=== PATIENT | male | born 1970 | race Caucasian/White ===

== ENCOUNTER 2016-08-31 17:49 | Emergency (ER) | payer OTHER, MEDICAID ==
[~2016-08-31] VITALS: Ht 177.8 cm; Wt 123.0 kg
[~2016-08-31 17:49] MED LIST: ACET325T11 PO; AMLO5TAB22 PO; ATOR80TA PO; BETH25 PO; HYDR12.56 PO; MECL25 PO; METF500 PO; METO50TA PO; SPIR50TA21 PO; TAMS0.4C4 PO; WARF5TAB PO
[2016-08-31 17:58] VITALS: BP 165/98; PULSE 84; RESP 19; TEMP 98.1
[2016-08-31 18:03] VITALS: BP 165/98; PULSE 96; RESP 16; TEMP 98.1
--- NOTE | 2016-08-31 18:38 | PD ---
HPI Chief Complaint: Abnormal Results Time Seen by Provider: 18:19 Travel History International Travel<30 days: No Contact w/Intl Traveler<30days: No Traveled to known affect area: No History of Present Illness HPI 46yo M with PMH of CVA on coumadin was sent here from PMD because his INR was high. Pt had his coumadin switch from 5mg to 10mg 5 days ago because INR was low. Pt had blood drawn yesterday and INR was 7. Pt denies any complaints. Denies any headache, chest pain, sob, n/v, abdominal pain, focal weakness or numbness, blood in stool, epistaxis or any bleeding. PFSH Past Medical History Hx Anticoagulant Therapy: Yes (COUMADIN ) Cardiovascular Problems: Yes (HTN) High Cholesterol: Yes Chemotherapy: No Cerebrovascular Accident: Yes (Stroke 2 years ago) Diabetes: Yes Patient Takes Glucophage: Yes Diminished Hearing: No Respiratory: No Immunizations Current: No Tetanus Vaccination: < 5 Years Influenza Vaccination: No Past Surgical History Surgical History: No Previous Surgery Social History Alcohol Use: No Tobacco Use: No Substance Use: No Allergies-Medications (Allergen,Severity, Reaction): Coded Allergies: Garlic (Verified Allergy, Unknown, 08/31/16) Azithromycin (Verified Adverse Reaction, Severe, 08/31/16) Reported Meds & Prescriptions Reported Meds & Active Scripts Active Atorvastatin 80 mg (Atorvastatin Calcium) 80 Mg Tab 80 Mg PO HS Urecholine (Bethanechol Chloride) 25 Mg Tab 25 Mg PO TID Warfarin Sodium 5 mg (Warfarin Sodium) 5 Mg Tab 5 Mg PO DAILY Spironolactone 50 Mg Tab 50 Mg PO DAILY Hydrochlorothiazide 12.5 Mg Tab 12.5 Mg PO DAILY Tamsulosin 0.4 mg (Tamsulosin HCl) 0.4 Mg Cap 0.8 Mg PO DAILY Metoprolol Tartrate 50 mg (Metoprolol Tartrate) 50 Mg Tab 50 Mg PO BID Antivert (Meclizine HCl) 25 Mg Tab 25 Mg PO TID Glucophage 500 mg (Metformin HCl) 500 Mg Tab 500 Mg PO DAILY Amlodipine Besylate 5 mg (Amlodipine Besylate) 5 Mg Tab 1 Tab PO DAILY Reported Tylenol 325 Mg Tab (Acetaminophen) 325 Mg Tab 325 Mg PO DAILY PRN Review of Systems Except as stated in HPI: all other systems reviewed are Neg Physical Exam Narrative GENERAL: 46yo M not in distress. SKIN: Focused skin assessment warm/dry. HEAD: Atraumatic. Normocephalic. EYES: Pupils equal and round. No scleral icterus. No injection or drainage. ENT: No nasal bleeding or discharge. Mucous membranes pink and moist. NECK: Trachea midline. No JVD. CARDIOVASCULAR: Regular rate and rhythm. No murmur appreciated. RESPIRATORY: No accessory muscle use. Clear to auscultation. Breath sounds equal bilaterally. GASTROINTESTINAL: Abdomen soft, non-tender, nondistended. No rebound tenderness or guarding. RECTAL: Brown stool. Hemaprompt negative. MUSCULOSKELETAL: No obvious deformities. No clubbing. No cyanosis. No edema. NEUROLOGICAL: Awake and alert. No obvious cranial nerve deficits. Mild decreased strength in left arm and leg which is residual from CVA. Sensation intact. Normal speech. PSYCHIATRIC: Appropriate mood and affect; insight and judgment normal. Data Data Last Documented VS Vital Signs Date Time Temp Pulse Resp B/P Pulse Ox O2 Delivery O2 Flow Rate FiO2 08/31/16 18:03 95 Room Air 08/31/16 18:03 98.1 96 16 165/98 95 Orders Complete Blood Count With Diff (08/31/16 18:32) Prothrombin Time / Inr (Pt) (08/31/16 18:32) Act Partial Throm Time (Ptt) (08/31/16 18:32) Labs Laboratory Tests Test 08/31/16 08/31/16 18:40 19:20 White Blood Count 11.4 TH/MM3 Red Blood Count 5.50 MIL/MM3 Hemoglobin 15.2 GM/DL Hematocrit 44.7 % Mean Corpuscular Volume 81.2 FL Mean Corpuscular Hemoglobin 27.6 PG Mean Corpuscular Hemoglobin 33.9 % Concent Red Cell Distribution Width 13.3 % Platelet Count 278 TH/MM3 Mean Platelet Volume 9.1 FL Neutrophils (%) (Auto) 71.1 % Lymphocytes (%) (Auto) 19.7 % Monocytes (%) (Auto) 6.4 % Eosinophils (%) (Auto) 1.9 % Basophils (%) (Auto) 0.9 % Neutrophils # (Auto) 8.1 TH/MM3 Lymphocytes # (Auto) 2.3 TH/MM3 Monocytes # (Auto) 0.7 TH/MM3 Eosinophils # (Auto) 0.2 TH/MM3 Basophils # (Auto) 0.1 TH/MM3 CBC Comment DIFF FINAL Differential Comment Prothrombin Time 72.3 SEC Prothromb Time International 6.0 RATIO Ratio Activated Partial 56.5 SEC Thromboplast Time MDM Medical Decision Making Medical Screen Exam Complete: Yes Emergency Medical Condition: Yes Differential Diagnosis Supratherapeutic INR Narrative Course 46yo with no complaints here because of supratherapeutic INR yesterday. Will repeat INR. H/H 15.2/44.7. Sign out to next team to follow up INR and disposition. HemaPrompt Point of Care Internal Pos. & Neg. Controls: Passed Fecal Specimen Occult Blood: Negative Leidy Chan DO Aug 31, 2016 18:37
[2016-08-31 19:01] LABS: AUTOMATED NEUTROPHIL # 8.1 TH/MM3 (1.8-7.7); BASOPHIL # 0.1 TH/MM3 (0-0.2); BASOPHIL % 0.9 % (0.0-2.0); EOSINOPHIL # 0.2 TH/MM3 (0-0.4); EOSINOPHIL % 1.9 % (0.0-4.0); HEMATOCRIT 44.7 % (39.0-51.0); HEMO FLAGS DIFF FINAL; LYMPH % 19.7 % (9.0-44.0); LYMPHOCYTE # 2.3 TH/MM3 (1.0-4.8); MEAN CELL VOLUME 81.2 FL (80.0-100.0); MEAN CORPUSCULAR HEMOGLOBIN 27.6 PG (27.0-34.0); MEAN CORPUSCULAR HGB CONC 33.9 % (32.0-36.0); MONO % 6.4 % (0.0-8.0); NEUT % 71.1 % (16.0-70.0); PLATELET COUNT 278 TH/MM3 (150-450); RED CELL DISTRIBUTION WIDTH 13.3 % (11.6-17.2); WHITE BLOOD COUNT 11.4 TH/MM3 (4.0-11.0)
--- NOTE | 2016-08-31 19:14 | PD ---
Data Data Last Documented VS Vital Signs Date Time Temp Pulse Resp B/P Pulse Ox O2 Delivery O2 Flow Rate FiO2 08/31/16 18:03 95 Room Air 08/31/16 18:03 98.1 96 16 165/98 95 Orders Complete Blood Count With Diff (08/31/16 18:32) Prothrombin Time / Inr (Pt) (08/31/16 18:32) Act Partial Throm Time (Ptt) (08/31/16 18:32) Labs Laboratory Tests Test 08/31/16 08/31/16 18:40 19:20 White Blood Count 11.4 TH/MM3 Red Blood Count 5.50 MIL/MM3 Hemoglobin 15.2 GM/DL Hematocrit 44.7 % Mean Corpuscular Volume 81.2 FL Mean Corpuscular Hemoglobin 27.6 PG Mean Corpuscular Hemoglobin 33.9 % Concent Red Cell Distribution Width 13.3 % Platelet Count 278 TH/MM3 Mean Platelet Volume 9.1 FL Neutrophils (%) (Auto) 71.1 % Lymphocytes (%) (Auto) 19.7 % Monocytes (%) (Auto) 6.4 % Eosinophils (%) (Auto) 1.9 % Basophils (%) (Auto) 0.9 % Neutrophils # (Auto) 8.1 TH/MM3 Lymphocytes # (Auto) 2.3 TH/MM3 Monocytes # (Auto) 0.7 TH/MM3 Eosinophils # (Auto) 0.2 TH/MM3 Basophils # (Auto) 0.1 TH/MM3 CBC Comment DIFF FINAL Differential Comment Prothrombin Time 72.3 SEC Prothromb Time International 6.0 RATIO Ratio Activated Partial 56.5 SEC Thromboplast Time MDM Medical Record Reviewed: Yes Supervised Visit with JUAN ANTONIO: No Narrative Course During the course of the patients emergency department visit, the patients history, examination, and differential diagnosis were reviewed with the patient. The patient had IV access obtained and blood work sent for analysis. The patient was placed on a irrigation manager with oximetry and blood pressure monitoring. The patient's case was checked out to me by Dr. Chan who requested that I review the patient's INR results. The patient is a 46-year-old male who presents to [facility] emergency department after being referred by the patient's primary care doctor related to an elevated INR of 7. The patient has a history of having a low INR and was increased from 5 mg 10 mg on his Coumadin approximately 5 days ago. The patient denies any sites of bleeding. The patient was reportedly Hemoccult-negative. The patients laboratory studies were reviewed and remarkable for a white count of 11.4, hemoglobin 15.2, platelets 278 with 71.1 neutrophils, INR is 6.0. This is decreased down from the 7 as an outpatient. At this time, as the patient has no signs or symptoms of bleeding and the INR is going down, the patient is instructed to hold his Coumadin and follow-up for repeat INR as an outpatient in 2 days, along with guidance from his physician regarding decreasing his dose of Coumadin in order to prevent a recurrence of this elevation. The patient is resting comfortably and feels better, is alert and in no distress. The patients results and examination findings were discussed with the patient. The repeat examination is unremarkable and benign. The history, exam, diagnostic testing, and current condition do not suggest any significant pathology to warrant further testing, continued ED treatment, admission, or surgical evaluation at this point. The vital signs have been stable. The patient does not have uncontrollable pain, intractable vomiting, or other significant symptoms. The patient's condition is stable and appropriate for discharge. The patient will pursue further outpatient evaluation with a primary care physician or other designated or consulting physician as indicated in the discharge instructions. The patient expressed understanding and was agreeable with this plan. Diagnosis Primary Impression: Elevated INR Referrals: Primary Care Physician 2 days Patient Instructions: Elevated INR (ED), General Instructions Additional Instruction: At this time, as the patient has no signs or symptoms of bleeding and the INR is going down, the patient is instructed to hold his Coumadin and follow-up for repeat INR as an outpatient in 2 days, along with guidance from his physician regarding decreasing his dose of Coumadin in order to prevent a recurrence of this elevation. The patient will be given an outpatient lab slip to repeat his INR in the morning on . Med/Other Pt SpecificInfo: Existing Med Changed (hold Coumadin level and until told by your physician to re-start at a lower dose) Disposition: 01 DISCHARGE HOME Condition: Stable Zulma Tuttle MD Aug 31, 2016 19:14
[2016-08-31 19:48] LABS: APTT (PATIENT) 56.5 SEC (24.3-30.1); PROTHROMBIN TIME - PATIENT 72.3 SEC (9.8-11.6)
== END 2016-08-31 21:39 | disposition home or self-care (01) ==
LOC: NEPE 17:49
DX: R79.1 Abnormal coagulation profile (principal); Z79.01 Long term (current) use of anticoagulants
CPT/HCPCS: 85025; 85610; 85730; 99283

== ENCOUNTER 2016-12-04 13:58 | Emergency (ER) | payer MEDICAID, OTHER ==
[~2016-12-04] VITALS: Ht 177.8 cm; Wt 108.0 kg
[2016-12-04 14:00] VITALS: BP 159/103; PULSE 102; RESP 20; TEMP 98.4; O2SAT 95
--- NOTE | 2016-12-04 14:22 | PD ---
Physical Exam Date Seen by Provider: Dec 04, 2016 Time Seen by Provider: 14:19 Narrative 46-year-old male presents to emergency department with right flank pain since yesterday. Patient states it kept him from sleeping last evening but now pain is 3 out of 10. Patient denies any specific urinary symptoms. He denies fever, chills, nausea, or vomiting. No diarrhea. Patient has distant history of kidney stones approximately 15-20 years ago. He is allergic to azithromycin and garlic. Urinalysis ordered. Vital signs reviewed and patient is awaiting bed placement. Data Data Last Documented VS Vital Signs Date Time Temp Pulse Resp B/P (MAP) Pulse Ox O2 Delivery O2 Flow Rate FiO2 12/04/16 14:00 98.4 102 20 159/103 (121) 95 Room Air [facility] Medical Record Reviewed: Yes Supervised Visit with JUAN ANTONIO: Yes Condition: Stable Colton Francois Dec 04, 2016 14:22
[2016-12-04] MEDS ORDERED: WARF-21 PO (14:58)
[2016-12-04] MEDS ORDERED: WARF-23 PO (14:58)
[2016-12-04] MEDS ORDERED: AMLO5TAB2 PO (14:58)
[2016-12-04] MEDS ORDERED: TYLE325T PO (14:58)
[2016-12-04] MEDS ORDERED: METO50TA PO (14:58)
[2016-12-04] MEDS ORDERED: TAMS0.4C4 PO (14:58)
[2016-12-04] MEDS ORDERED: HYDR12.56 PO (14:58)
--- NOTE | 2016-12-04 15:00 | PD ---
Physical Exam Date Seen by Provider: Dec 04, 2016 Narrative Patient presents complaining with right flank pain On exam, the patient is sitting comfortably on the edge of the stretcher in no distress. He does not have CVA tenderness. Data Data Last Documented VS Vital Signs Date Time Temp Pulse Resp B/P (MAP) Pulse Ox O2 Delivery O2 Flow Rate FiO2 12/04/16 14:00 98.4 102 20 159/103 (121) 95 Room Air Orders Orders Urinalysis - C+S If Indicated (12/04/16 14:22) MDM Supervised Visit with JUAN ANTONIO: Yes Narrative Course I, Dr. Kemp, have reviewed the advance practice practitioner's documentation and am in agreement, met with the patient face to face, made the diagnosis, and the medical decision making was done by me. *My assessment and Findings: Well-appearing man with right flank pain. See Corrie Marti's note for final diagnosis and disposition. Condition: Stable Nelia Kemp MD Dec 04, 2016 15:00
--- NOTE | 2016-12-04 15:11 | PD ---
HPI Chief Complaint: Flank/Kidney Pain Time Seen by Provider: 14:56 Travel History International Travel<30 days: No Contact w/Intl Traveler<30days: No Traveled to known affect area: No History of Present Illness HPI Patient is a 46-year-old male presenting to the emergency room for evaluation of right back pain. Patient states the pain started last night, it caused him to be restless when he was sleeping. He denies any hematuria, dysuria, frequency. Patient just returned from [place], he states he spent 8 hours in the car driving 2 days ago. He further denies any fever, chills, nausea, vomiting, chest pain or shortness of breath. He has remote history of kidney stone, he is no history of urinary tract infections. His past medical history is significant for CVA and hypertension, patient is currently on Coumadin. His primary doctor is Sharon Bang. PFSH Past Medical History Hx Anticoagulant Therapy: Yes (COUMADIN ) Cardiovascular Problems: Yes (HTN) High Cholesterol: Yes Chemotherapy: No Cerebrovascular Accident: Yes (Stroke 2 years ago) Diabetes: Yes Patient Takes Glucophage: No Diminished Hearing: No Hypertension: Yes Respiratory: No Immunizations Current: No Social History Alcohol Use: No Tobacco Use: No Substance Use: No Allergies-Medications (Allergen,Severity, Reaction): Coded Allergies: garlic (Unverified Allergy, Unknown, 12/04/16) azithromycin (Unverified Adverse Reaction, Severe, 12/04/16) Reported Meds & Prescriptions Reported Meds & Active Scripts Active Reported Warfarin 5 Mg Tab 5 Mg PO DAILY EVERYDAY, EXCEPT TUESDAY, TUESDAY Warfarin 7.5 Mg Tab 7.5 Mg PO DIRECTED TUESDAY, TUESDAY Tamsulosin (Tamsulosin HCl) 0.4 Mg Cap 0.4 Mg PO HS Hydrochlorothiazide 12.5 Mg Tab 12.5 Mg PO DAILY Metoprolol Tartrate 50 Mg Tab 50 Mg PO DAILY Amlodipine (Amlodipine Besylate) 5 Mg Tab 5 Mg PO DAILY Tylenol (Acetaminophen) 325 Mg Tab 325 Mg PO Q4H PRN Review of Systems Except as stated in HPI: all other systems reviewed are Neg Musculoskeletal: Positive: Myalgias, Pain Physical Exam Narrative GENERAL: Well-developed, well-nourished, alert male. Resting comfortably in no acute distress. SKIN: Warm and dry. HEAD: Atraumatic. Normocephalic. EYES: Pupils equal and round. No scleral icterus. No injection or drainage. ENT: No nasal bleeding or discharge. Mucous membranes pink and moist. NECK: Trachea midline. No JVD. CARDIOVASCULAR: Regular rate and rhythm. RESPIRATORY: No accessory muscle use. Clear to auscultation. Breath sounds equal bilaterally. GASTROINTESTINAL: Abdomen soft, non-tender, nondistended. Hepatic and splenic margins not palpable. MUSCULOSKELETAL: Extremities without clubbing, cyanosis, or edema. No obvious deformities. No CVAT bilaterally. Mild tenderness to palpation in right lower spinal musculature. NEUROLOGICAL: Awake and alert. No obvious cranial nerve deficits. Motor grossly within normal limits. Five out of 5 muscle strength in the arms and legs. Normal speech. PSYCHIATRIC: Appropriate mood and affect; insight and judgment normal. Data Data Last Documented VS Vital Signs Date Time Temp Pulse Resp B/P (MAP) Pulse Ox O2 Delivery O2 Flow Rate FiO2 12/04/16 14:00 98.4 102 20 159/103 (121) 95 Room Air Orders Orders Urinalysis - C+S If Indicated (12/04/16 14:22) Ibuprofen (Motrin) (12/04/16 15:15) Labs Laboratory Tests Test 12/04/16 14:30 Urine Color YELLOW Urine Turbidity CLEAR Urine pH 5.5 Urine Specific [place] 1.019 Urine Protein TRACE mg/dL Urine Glucose (UA) NEG mg/dL Urine Ketones NEG mg/dL Urine Occult Blood NEG Urine Nitrite NEG Urine Bilirubin NEG Urine Urobilinogen LESS THAN 2.0 MG/DL Urine Leukocyte Esterase NEG Urine RBC 1 /hpf Urine WBC 2 /hpf Urine Squamous Epithelial Cells <1 /hpf Urine Mucus FEW /lpf Urine Sperm FEW Microscopic Urinalysis Comment CULT NOT INDICATED MDM Medical Decision Making Medical Screen Exam Complete: Yes Emergency Medical Condition: Yes Interpretation(s) Laboratory Tests Test 12/04/16 14:30 Urine Color YELLOW Urine Turbidity CLEAR Urine pH 5.5 Urine Specific [place] 1.019 Urine Protein TRACE mg/dL Urine Glucose (UA) NEG mg/dL Urine Ketones NEG mg/dL Urine Occult Blood NEG Urine Nitrite NEG Urine Bilirubin NEG Urine Urobilinogen LESS THAN 2.0 MG/DL Urine Leukocyte Esterase NEG Urine RBC 1 /hpf Urine WBC 2 /hpf Urine Squamous Epithelial Cells <1 /hpf Urine Mucus FEW /lpf Urine Sperm FEW Microscopic Urinalysis Comment CULT NOT INDICATED Vital Signs Date Time Temp Pulse Resp B/P (MAP) Pulse Ox O2 Delivery O2 Flow Rate FiO2 12/04/16 14:00 98.4 102 20 159/103 (121) 95 Room Air Differential Diagnosis UTI versus kidney stone versus pyelonephritis versus strain versus muscle spasm versus discogenic pain Narrative Course Patient is a 46-year-old male that presented to emergency evaluation of right low back pain that he initially attributed to his kidneys. He reports a remote history of kidney stones, exam findings that appear consistent with a kidney stone. Patient is resting comfortably. We'll assess a urinalysis. No signs are stable, he is afebrile. Urinalysis reviewed, other than mucus and sperm and is unremarkable. Patient was given ibuprofen in the emergency department. Pain in his back may be related to the long car ride he just completed. Patient is encouraged [id number] Tylenol needed and as directed for pain. He will be given a short course of muscle relaxers. He is encouraged to follow -up with her primary doctor, apply warm heat to affected area, continue range of motion exercises. He was encouraged to return to emergency department immediately for any new or worsening symptoms. Diagnosis Primary Impression: Back pain Qualified Codes: M54.9 - Dorsalgia, unspecified Referrals: Primary Care Physician Patient Instructions: Acute Low Back Pain (ED), General Instructions Additional Instructions: Follow-up with your primary doctor Take medications as directed Apply warm moist heat to the affected area, continue range of motion exercises, avoid exacerbating activities, avoid bed rest Return to the emergency department for any new or worsening symptoms Med/Other Pt SpecificInfo: Prescription(s) given Scripts Cyclobenzaprine (Flexeril) 10 Mg Tab 10 MG PO TID Y for MUSCLE SPASM for 10 Days, #30 TAB 0 Refills Prov: Corrie Lugo 12/04/16 Disposition: 01 DISCHARGE HOME Condition: Stable Corrie Lugo Dec 04, 2016 15:11
[2016-12-04] MEDS ORDERED: IBUPROFEN 800 MG TAB PO ONE (15:15)
[2016-12-04 15:33] LABS: BLOOD, URINE NEG (NEG); COMMENT (UR) CULT NOT INDICATED; CULTURE IF INDICATED CULT NOT INDICATED; GLUCOSE,URINE NEG (NEG); KETONE, URINE NEG (NEG); MUCUS URINE FEW /lpf (OCC); NITRITE,URINE NEG (NEG); PH, URINE 5.5 (5.0-8.5); SQUAMOUS EPITHELIAL CELL URINE <1 /hpf (0-5); URINE COLOR YELLOW (YELLW/STRAW)
[2016-12-04] MEDS ORDERED: CYCL1TAB29 PO (15:53)
== END 2016-12-04 16:05 | disposition home or self-care (01) ==
LOC: NEPD 13:58
DX: M54.5 Low back pain (principal); E11.9 Type 2 diabetes mellitus without complications; I10 Essential (primary) hypertension; E78.00 Pure hypercholesterolemia, unspecified; Z79.01 Long term (current) use of anticoagulants; Z86.79 Personal history of other diseases of the circulatory system
CPT/HCPCS: 81001; 99283

== ENCOUNTER 2017-09-01 09:40 | Emergency (ER) | payer MEDICARE, MEDICAID ==
[~2017-09-01] VITALS: Ht 177.8 cm; Wt 120.0 kg
[~2017-09-01 09:40] MED LIST changes: -ACET325T11 PO; +AMLO5TAB2 PO; -AMLO5TAB22 PO; -ATOR80TA PO; -BETH25 PO; +CYCL10TA PO; -MECL25 PO; -METF500 PO; -SPIR50TA21 PO; +TYLE325T PO; +WARF-21 PO; +WARF-23 PO; -WARF5TAB PO
[2017-09-01 09:46] VITALS: BP 189/99; PULSE 99; RESP 16; TEMP 98.7; O2SAT 97
--- NOTE | 2017-09-01 10:17 | PD ---
HPI Chief Complaint: ENT Complaint Time Seen by Provider: 09:59 Travel History International Travel<30 days: No Contact w/Intl Traveler<30days: No Traveled to known affect area: No History of Present Illness HPI 47-year-old male presents to the emergency department with complaint of a foreign body sensation in his throat 2 weeks. He says he does not have any problem eating or drinking. He denies throat pain. Denies painful swallowing. Says its "something I just notice." He denies chest pain, shortness of breath , abdominal pain, nausea, vomiting, fevers. Denies recent illness to include sore throat, nasal congestion, ear pain, cough. Denies difficulty swallowing, unusual drooling, stridor, wheezing. Has not taken any medications or try any treatments to alleviate his symptoms. Symptoms are mild in severity. Aggravated with swallowing. No known relieving factors. Primary care provider is Dr. Kayla Bang. No known allergies. History of hypertension and takes medication. Has no other medical complaints. No other modifying factors or associated signs and symptoms. PFSH Past Medical History Hx Anticoagulant Therapy: Yes Cardiovascular Problems: Yes (HTN) High Cholesterol: Yes Chemotherapy: No Cerebrovascular Accident: Yes Diabetes: Yes Diminished Hearing: No Hypertension: Yes Respiratory: No Immunizations Current: No Social History Alcohol Use: No Tobacco Use: No Substance Use: No Allergies-Medications (Allergen,Severity, Reaction): Coded Allergies: garlic (Unverified Allergy, Unknown, 09/01/17) azithromycin (Unverified Adverse Reaction, Severe, 09/01/17) Reported Meds & Prescriptions Reported Meds & Active Scripts Active Reported Metoprolol Tartrate 50 Mg Tab 50 Mg PO DAILY Review of Systems Except as stated in HPI: all other systems reviewed are Neg Physical Exam Narrative GENERAL: Well-nourished, well-developed male patient, in no acute distress; afebrile, nontoxic-appearing SKIN: Warm and dry. No rash. HEAD: Atraumatic. Normocephalic. EYES: Pupils equal and round. No scleral icterus. No injection or drainage. ENT: Mucosa pink and moist. No erythema or exudates. No uvular edema. No uvular , palatal, or tonsillar deviation. No visualized foreign body, lump, or mass in the oropharynx. Airway patent. EARS: Bilateral pinnae and external canals appear within normal limits. Bilateral tympanic membranes without erythema, dullness or perforation. NECK: Trachea midline. No lymphadenopathy. CARDIOVASCULAR: Regular rate. RESPIRATORY: No accessory muscle use. No wheezing, stridor, tachypnea, retractions. GASTROINTESTINAL: Rounded. MUSCULOSKELETAL: No obvious deformities. No clubbing. No cyanosis. No edema. NEUROLOGICAL: Awake and alert. Oriented 3. No obvious cranial nerve deficits. Motor grossly within normal limits. Normal speech. Moves all extremities. 5/5 strength to all extremities. PSYCHIATRIC: Appropriate mood and affect; insight and judgment normal. Data Data Last Documented VS Vital Signs Date Time Temp Pulse Resp B/P (MAP) Pulse Ox O2 Delivery O2 Flow Rate FiO2 09/01/17 09:46 98.7 99 16 189/99 (129) [address] Soft Tiss Neck W/O Iv Cont (09/01/17 ) MDM Medical Decision Making Medical Screen Exam Complete: Yes Emergency Medical Condition: Yes Medical Record Reviewed: Yes Differential Diagnosis Food bolus, foreign body sensation in throat, tonsillitis, less likely peritonsillar abscess Narrative Course 47-year-old male with foreign body sensation in the throat. Physical exam is unremarkable. Visualization of the oropharynx is unremarkable. I discussed the patient with Dr. Negron and plan of care discussed. CT soft tissue neck ordered. 1219: CT soft tissue neck conclude: Neck CT 09/01/17 0000 Signed Impressions: CONCLUSION: 1. Small calcifications in the right tonsil likely related to tonsillar stones . 2. Minimally prominent right parapharyngeal lymph node. This is nonspecific. 3. Nonspecific 1.5 cm right thyroid nodule. Patient provided a copy of the CT report. Instructed to follow-up with ear nose throat specialist. Instructed patient to follow up with primary care provider. Patient verbalizes understanding and agreement with treatment plan. Patient is medically cleared and stable for discharge. Discussed reasons to return to the emergency department. Patient agrees with treatment plan. The patients vital signs are stable and the patient is stable for outpatient follow- up and treatment. Patient discharged home, stable and in no acute distress. Diagnosis Primary Impression: Foreign body sensation in throat Additional Impressions: Calculus of tonsil Thyroid nodule Referrals: Ear / Nose / Throat Specialist Primary Care Physician Patient Instructions: General Instructions, Thyroid Nodules (ED) Additional Instructions: You have been provided a copy of your CT soft tissue neck report Follow-up with ear nose throat specialist Follow-up with primary care provider Return to the emergency department immediately with worsening of symptoms Med/Other Pt SpecificInfo: No Change to Meds, No Meds Exist/No RX given Disposition: 01 DISCHARGE HOME Condition: Stable Alda Phillips Sep 01, 2017 10:17
--- NOTE | 2017-09-01 12:17 | RADRPT ---
EXAM DATE: 09/01/2017 12:07 PM EDT AGE/SEX: 47 years / Male INDICATIONS: Foreign body sensation in throat x 2 weeks. CLINICAL DATA: This is the patient's initial encounter. Patient reports that signs and symptoms have been present for 2 weeks and indicates a pain score of 2/10. MEDICAL/SURGICAL HISTORY: Hypertension. Diabetes. Cerebrovascular disease. None. RADIATION DOSE: 19.16 CTDI (mGy) COMPARISON: No prior exams available for comparison. TECHNIQUE: Helical acquisition was performed using a multirow detector CT scanner without contrast. Using automated exposure control and adjustment of the mA and/or kV according to patient size, radiat ion dose was kept as low as reasonably achievable to obtain optimal diagnostic quality images. DICOM format image data is available electronically for review and comparison. FINDINGS: Nasopharynx: The nasopharyngeal airway has a normal configuration. No mucosal thickening or mass is seen. Oropharynx: There are small calcification seen in the right tonsil likely related to tonsillar stone s. The tonsils do not appear significantly enlarged. The intrinsic muscles of the tongue are symmetri c. The tonsillar pillars are intact. The prevertebral soft tissues are not thickened. Larynx: The supraglottic, glottic, and infraglottic structures are intact. Parapharyngeal: The parapharyngeal space is intact. Salivary Glands: The parotid and submandibular glands are intact. Lymph Nodes: Normal size lymph nodes are seen throughout the neck. There is a borderline enlarged ly mph node seen in the right parapharyngeal region measuring 1.3 x 0.8 cm. This lymph node does have a normal fatty hilum. Thyroid: There is a 1.5 cm low-density mass in the right lobe of the thyroid. Bones: Unremarkable. CONCLUSION: 1. Small calcifications in the right tonsil likely related to tonsillar stones. 2. Minimally prominent right parapharyngeal lymph node. This is nonspecific. 3. Nonspecific 1.5 cm right thyroid nodule. Electronically signed by: Charanjit Corona MD 09/01/2017 12:15 PM EDT
== END 2017-09-01 12:52 | disposition home or self-care (01) ==
LOC: NEPK 09:40
DX: R09.89 Other specified symptoms and signs involving the circulatory and respiratory systems (principal); J35.8 Other chronic diseases of tonsils and adenoids; E04.1 Nontoxic single thyroid nodule; I10 Essential (primary) hypertension; E11.9 Type 2 diabetes mellitus without complications; E78.00 Pure hypercholesterolemia, unspecified; Z86.73 Personal history of transient ischemic attack (TIA), and cerebral infarction without residual deficits; Z79.899 Other long term (current) drug therapy
CPT/HCPCS: 70490